=== PATIENT | male | born 1975 | race Two or more races ===

== ENCOUNTER 2020-06-19 11:36 | Outpatient (CLI) | payer OTHER | END 2020-06-19 11:45 | disposition home or self-care (01) | LOC: RAD 11:36 | PROVIDERS: ATTEND Urology | DX: N20.1 Calculus of ureter (principal) ==

== ENCOUNTER 2020-10-02 13:45 | Day surgery (SDC) | payer OTHER ==
[~2020-10-02 13:45] MED LIST: ULTRAM50 MG PO
== END 2020-10-02 21:50 | disposition home or self-care (01) ==
LOC: CIR.AMB 13:45
PROVIDERS: ATTEND Urology
DX: N20.1 Calculus of ureter (principal); Z20.828 Contact with and (suspected) exposure to other viral communicable diseases